=== PATIENT | male | born 1995 | race Caucasian/White ===

== ENCOUNTER → 2018-06-05 00:29 | Emergency (ER) | payer BC, OTHER ==
[~2018-06-05 00:29] MED LIST: Acetaminophen TAB* 325 MG PO ONE; Ketorolac INJ* 30 MG/ML 1 ML VIAL IV PUSH ONE; Metoclopramide IV* 5 MG/ML 2 ML VIAL IV SLOW PU ONE; NS 0.9% 1000 ML*IV.FLUID IV ONE; diPHENhydraMINE IV* 50 MG/ML 1 ml VIAL (BENADRYL) SLOW PUSH ONE
--- NOTE | 2018-06-05 01:59 | ED ---
Headache - HPI Summary HPI Summary: This patient is a 22 year old M presenting to [facility] with a chief complaint of a migraine at the roman catholic for 48 hours. The patient rates the pain 7/10 in severity. Patient reports fever of 103 F, vomiting, and photophobia. Patient denies neck pain. Pt states he has only had only one other migraine in the past. - History Of Current Complaint Chief Complaint: EDFever Stated Complaint: FEVER Time Seen by Provider: 06/05/18 01:23 Onset/Duration: Started days ago, Still Present Initially Headache Was: Moderate Currently Pain Is: Current Pain Scale(0-10)= - 7 Timing: Constant Character: Migraine Location of Headache: Temporal Associated Signs And Symptoms: Nausea, Vomiting, Fever - Allergies/Home Medications Allergies/Adverse Reactions: Allergies Allergy/AdvReac Type Severity Reaction Status Date / Time No Known Allergies Allergy Verified 06/05/18 00:38 PMH/Surg Hx/FS Hx/Imm Hx Endocrine/Hematology History: Denies: Hx Blood Transfusions, Hx Diabetes, Hx Systemic Lupus Erythematosus Cardiovascular History: Denies: Hx Congenital Heart Disease Respiratory History: Denies: Hx Bronchopulmonary Dysplasia, Hx Chronic Bronchitis, Hx Chronic Obstructive Pulmonary Disease (COPD), Hx Lung Cancer, Hx Pleural Effusion GI History: Denies: Hx Diverticulosis, Hx Gastrointestinal Bleed Opthamlomology History: Denies: Hx Macular Degeneration Neurological History: Reports: Hx Headaches, Hx Migraine Psychiatric History: Denies: Hx Eating Disorder Infectious Disease History: No Infectious Disease History: Denies: Traveled Outside the [place] in Last 30 Days - Family History Known Family History: Negative: Cardiac Disease, Hypertension, Diabetes, Renal Disease, Respiratory Disease, Seizure Disorder, Blood Disorder - Social History Alcohol Use: Occasionally Substance Use Type: Reports: None Smoking Status (MU): Never Smoked Tobacco Review of Systems Positive: Fever Positive: Photophobia Positive: Vomiting, Nausea Positive: Headache All Other Systems Reviewed And Are Negative: Yes Physical Exam - Summary Physical Exam Summary: VITAL SIGNS: Reviewed. GENERAL: Patient is a well-developed and nourished male who is lying comfortable in the stretcher. Patient is not in any acute respiratory distress. HEAD AND FACE: No signs of trauma. No ecchymosis, hematomas or skull depressions. No sinus tenderness. EYES: PERRLA, EOMI x 2, No injected conjunctiva, no nystagmus. EARS: Hearing grossly intact. Ear canals and tympanic membranes are within normal limits. MOUTH: Oropharynx within normal limits. NECK: Supple, trachea is midline, no adenopathy, no JVD, no carotid bruit, no c- spine tenderness, neck with full ROM. There are no meningeal signs CHEST: Symmetric, no tenderness at palpation LUNGS: Clear to auscultation bilaterally. No wheezing or crackles. CVS: Regular rate and rhythm, S1 and S2 present, no murmurs or gallops appreciated. ABDOMEN: Soft, non-tender. No signs of distention. No rebound no guarding, and no masses palpated. Bowel sounds are normal. EXTREMITIES: FROM in all major joints, no edema, no cyanosis or clubbing. NEURO: Alert and oriented x 3. No acute neurological deficits. Speech is normal and follows commands. SKIN: Dry and warm Triage Information Reviewed: Yes Vital Signs On Initial Exam: Initial Vitals Temp Pulse Resp BP Pulse Ox 102.4 F 113 18 116/68 97 06/05/18 00:34 06/05/18 00:34 06/05/18 00:34 06/05/18 00:34 06/05/18 00:34 Vital Signs Reviewed: Yes Diagnostics - Vital Signs Vital Signs Temp Pulse Resp BP Pulse Ox 06/05/18 00:34 102.4 F 113 18 116/68 97 - Laboratory Result Diagrams: 06/05/18 02:08 06/05/18 02:08 Lab Statement: Any lab studies that have been ordered have been reviewed, and results considered in the medical decision making process. Headache Course/Dx - Course Assessment/Plan: This patient is a 22 year old M presenting to [facility] with a chief complaint of a migraine at the roman catholic for 48 hours. The patient rates the pain 7/10 in severity. Patient reports fever of 103 F, vomiting, and photophobia. Patient denies neck pain. Pt states he has only had only one other migraine in the past. Blood work and UA obtained. Patient was negative for influenza, strep, and mono. Dx viral syndrome and headache. In the ED course the patient was given reglan, Benadryl, IV fluids, and Tylenol. Patient will be discharged and follow up from PCP. The patient is agreeable with this plan. - Diagnoses Provider Diagnoses: Viral syndrome, Headache Discharge - Sign-Out/Discharge Documenting (check all that apply): Patient Departure - Discharge Plan Condition: Stable Disposition: HOME Prescriptions: Ibuprofen TAB* [Motrin TAB* 800 MG] 800 mg PO Q6H PRN #30 tab PRN Reason: Fever/Pain Patient Education Materials: Viral Syndrome (ED), Acute Headache (ED) Referrals: [facility] [Outside] Additional Instructions: RETURN TO THE EMERGENCY DEPARTMENT FOR CHANGING OR WORSENING SYMPTOMS. FOLLOW UP WITH PCP IN 1-2 DAYS. - Attestation Statements Document Initiated by Scribe: Yes Documenting Scribe: Isaac Fair Provider For Whom Scribe is Documenting (Include Credential): Campbell Atkinson MD Scribe Attestation: Isaac Benites , scribed for Campbell Atkinson MD on 06/05/18 at [id number].
[2018-06-05 02:08] LABS: Urine Appearance Clear; Urine Blood Negative (Negative); Urine Color Yellow; Urine Ketones Negative (Negative); Urine Protein Negative (Negative); Urine Specific Gravity 1.018 (1.010-1.030); Urine Urobilinogen Negative (Negative)
[2018-06-05 02:23] LABS: ABS Basophils 0.1 10^3/ul (0-0.2); ABS Eosinophils 0.1 10^3/ul (0-0.6); ABS Lymphocytes 1.6 10^3/ul (1.0-4.8); ABS Monocytes 0.5 10^3/ul (0-0.8); ABS Neutrophils 7.2 10^3/ul (1.5-7.7); ABS Nucleated RBC 0 10^3/ul; Eosinophil % 0.8 % (0-6); Hematocrit 44 % (42-52); Hemoglobin 15.3 g/dl (14.0-18.0); Mean Corpuscular HGB Conc 35 g/dl (31-36); Mean Corpuscular Hemoglobin 31 pg (27-31); Mean Corpuscular Volume 89 fL (80-94); Mean Platelet Volume 9.4 um3 (7.4-10.4); Nucleated Red Blood Cells % 0.1; Platelet Count 149 10^3/ul (150-450); Red Cell Distribution Width 13 % (10.5-15); White Blood Count 9.5 10^3/ul (3.5-10.8)
[2018-06-05 02:24] LABS: INR 0.96 (0.77-1.02)
[2018-06-05 02:36] LABS: EGFR Non-African American 74.3 (>60)
[2018-06-05 04:00] VITALS: BP 132/65
== END | disposition home or self-care (01) ==
LOC: ED 00:29
DX: B34.9 Viral infection, unspecified (principal); R51 Headache; R11.2 Nausea with vomiting, unspecified; R50.9 Fever, unspecified; H53.149 Visual discomfort, unspecified
CPT/HCPCS: 36415; 80053; 81003; 82550; 83605; 85025; 85610; 86140; 86308; 86664; 86665; 87040; 87651; 96374; 96375; 99283; A9270-GY; J1200; J1885; J2765

== ENCOUNTER 2018-06-06 17:42 | Observation (INO) | payer BC ==
[2018-06-06] MEDS ORDERED: NS 0.9% 1000 ML* 1,000 ML IV ONE ×2 (18:04→18:48)
[2018-06-06] MEDS ORDERED: Ondansetron INJ* 2 MG/ML VIAL ONE (18:11)
[2018-06-06] MEDS: Ondansetron INJ* 2 MG/ML VIAL IV PRN ×2 (18:15→19:06)
[2018-06-06 18:39] LABS: ABS Basophils 0 10^3/ul (0-0.2); ABS Eosinophils 0 10^3/ul (0-0.6); ABS Monocytes 0.8 10^3/ul (0-0.8); ABS Neutrophils 10.5 10^3/ul (1.5-7.7); ABS Nucleated RBC 0 10^3/ul; Eosinophil % 0.4 % (0-6); Hematocrit 42 % (42-52); Hemoglobin 14.4 g/dl (14.0-18.0); Mean Corpuscular HGB Conc 34 g/dl (31-36); Mean Corpuscular Hemoglobin 30 pg (27-31); Mean Corpuscular Volume 89 fL (80-94); Mean Platelet Volume 9.1 um3 (7.4-10.4); Nucleated Red Blood Cells % 0; Platelet Count 130 10^3/ul (150-450); Red Blood Count 4.76 10^6/ul (4.00-5.40); Red Cell Distribution Width 13 % (10.5-15); White Blood Count 12.4 10^3/ul (3.5-10.8)
[2018-06-06] MEDS ORDERED: Metoclopramide IV* 5 MG/ML 2 ML VIAL ONE (18:45)
[2018-06-06] MEDS ORDERED: Metoclopramide IV* 5 MG/ML 2 ML VIAL IV ONE (18:47)
[2018-06-06 18:54] LABS: EGFR Non-African American 85.5 (>60)
--- NOTE | 2018-06-06 19:44 | ED ---
Nausea/Vomiting/Diarrhea HPI - HPI Summary HPI Summary: Patient complains of fever up to 102, persistent N/V, dizziness with room spinning, migraine headache x 4 days. No history of headaches, states RIVAS built gradually, has been persistent since onset. Seen here 06/04 for RIVAS, fever, N/V. D /c home with dx viral syndrome. Denies neck pain, vision chnage, sudden onset RIVAS, focal deficit, AMS, cough, sore throat, ear pain, SOB, abdominal pain, diarrhea, change in urine, penile pain or discharge, change in BM. Medical history is none. Abdominal/pelvic surgical history is none. Denies smoking, illegal drug use. Admits to occasional EtOH. Denies known contact exposure. - History of Current Complaint Chief Complaint: EDNauseaVomitDiarrh Stated Complaint: NAUSEA/VOMITING Time Seen by Provider: 06/06/18 18:01 Hx Obtained From: Patient Onset/Duration: Sudden Onset Severity Initially: Moderate Severity Currently: Moderate Pain Intensity: 5 Pain Scale Used: 0-10 Numeric Aggravating Factor(s): Nothing Alleviating Factor(s): Nothing Nausea/Vomiting Presence: Nauseated, Vomiting Vomiting Frequency: Every 1-2 hours Diarrhea Presence: No - Allergies/Home Medications Allergies/Adverse Reactions: Allergies Allergy/AdvReac Type Severity Reaction Status Date / Time No Known Allergies Allergy Verified 06/05/18 00:38 PMH/Surg Hx/FS Hx/Imm Hx Endocrine/Hematology History: Denies: Hx Blood Transfusions, Hx Diabetes, Hx Systemic Lupus Erythematosus Cardiovascular History: Denies: Hx Congenital Heart Disease Respiratory History: Denies: Hx Bronchopulmonary Dysplasia, Hx Chronic Bronchitis, Hx Chronic Obstructive Pulmonary Disease (COPD), Hx Lung Cancer, Hx Pleural Effusion GI History: Denies: Hx Diverticulosis, Hx Gastrointestinal Bleed Sensory History: Denies: Hx Macular Degeneration Opthamlomology History: Denies: Hx Macular Degeneration Neurological History: Reports: Hx Headaches, Hx Migraine Psychiatric History: Denies: Hx Eating Disorder Infectious Disease History: No Infectious Disease History: Denies: Traveled Outside the [place] in Last 30 Days - Family History Known Family History: Negative: Cardiac Disease, Hypertension, Diabetes, Renal Disease, Respiratory Disease, Seizure Disorder, Blood Disorder - Social History Alcohol Use: Occasionally Substance Use Type: Reports: None Smoking Status (MU): Never Smoked Tobacco Review of Systems Positive: Fever Eyes: Negative ENT: Negative Cardiovascular: Negative Respiratory: Negative Positive: Vomiting, Nausea Genitourinary: Negative Musculoskeletal: Negative Skin: Negative Positive: Headache Psychological: Normal All Other Systems Reviewed And Are Negative: Yes Physical Exam - Summary Physical Exam Summary: Negative Kernig's, negative Brudzinski. Full range of motion of neck without pain. Physical exam otherwise unremarkable. Triage Information Reviewed: Yes Vital Signs On Initial Exam: Initial Vitals Pulse Pulse Ox 64 100 06/06/18 17:50 06/06/18 17:50 Vital Signs Reviewed: Yes Appearance: Positive: Well-Appearing Skin: Positive: Warm Head/Face: Positive: Normal Head/Face Inspection Eyes: Positive: Normal Neck: Positive: Supple Respiratory/Lung Sounds: Positive: Clear to Auscultation Cardiovascular: Positive: Normal Abdomen Description: Positive: Nontender Musculoskeletal: Positive: Normal Neurological: Positive: Normal Psychiatric: Positive: Normal AVPU Assessment: Alert - [place] Coma Scale Best Eye Response: 4 - Spontaneous Best Motor Response: 6 - Obeys Commands Best Verbal Response: 5 - Oriented Coma Scale Total: 15 Diagnostics - Vital Signs Vital Signs Temp Pulse Resp BP Pulse Ox 06/06/18 19:00 64 100 06/06/18 18:50 66 120/75 100 06/06/18 18:20 62 119/68 100 06/06/18 18:00 61 100 06/06/18 17:58 97.2 F 61 22 129/94 100 06/06/18 17:54 66 129/94 100 06/06/18 17:50 64 100 - Laboratory Lab Results: Lab Results 06/06/18 06/06/18 06/06/18 Range/Units 18:31 18:31 18:31 WBC 12.4 H (3.5-10.8) 10^3/ul RBC 4.76 (4.00-5.40) 10^6/ul Hgb 14.4 (14.0-18.0) g/dl Hct 42 (42-52) % MCV 89 (80-94) fL MCH 30 (27-31) pg MCHC 34 (31-36) g/dl RDW 13 (10.5-15) % Plt Count 130 L (150-450) 10^3/ul MPV 9.1 (7.4-10.4) um3 Neut % (Auto) 84.9 H (38-83) % Lymph % (Auto) 8.0 L (25-47) % [place] % (Auto) 6.5 (0-7) % Eos % (Auto) 0.4 (0-6) % Baso % (Auto) 0.2 (0-2) % Absolute Neuts (auto) 10.5 H (1.5-7.7) 10^3/ul Absolute Lymphs (auto) 1.0 (1.0-4.8) 10^3/ul Absolute Monos (auto) 0.8 (0-0.8) 10^3/ul Absolute Eos (auto) 0 (0-0.6) 10^3/ul Absolute Basos (auto) 0 (0-0.2) 10^3/ul Absolute Nucleated RBC 0 10^3/ul Nucleated RBC % 0 Sodium 139 (135-145) mmol/L Potassium 3.8 (3.5-5.0) mmol/L Chloride 110 (101-111) mmol/L Carbon Dioxide 19 L (22-32) mmol/L Anion Gap 10 (2-11) mmol/L BUN 9 (6-24) mg/dL Creatinine 1.08 (0.67-1.17) mg/dL Est GFR ( Amer) 103.5 (>60) Est GFR (Non-Af Amer) 85.5 (>60) BUN/Creatinine Ratio 8.3 (8-20) Glucose 135 H (70-100) mg/dL Lactic Acid 2.0 (0.5-2.0) mmol/L Calcium 8.8 (8.6-10.3) mg/dL Total Bilirubin 0.80 (0.2-1.0) mg/dL AST 14 (13-39) U/L ALT 16 (7-52) U/L Alkaline Phosphatase 54 (34-104) U/L C-Reactive Protein 1.01 (<8.01) mg/L Total Protein 6.9 (6.4-8.9) g/dL Albumin 4.3 (3.2-5.2) g/dL Globulin 2.6 (2-4) g/dL Albumin/Globulin Ratio 1.7 (1-3) Lipase < 10 L (11.0-82.0) U/L Serum Alcohol < 10 (<10) mg/dL Result Diagrams: 06/06/18 18:31 06/06/18 18:31 Lab Statement: Any lab studies that have been ordered have been reviewed, and results considered in the medical decision making process. - CT brain CT Interpretation: No Acute Changes CT Interpretation Completed By: Radiologist Naus/Vom/Diarrhea Course/Dx - Course Course Of Treatment: Patient complains of fever up to 102, persistent N/V, dizziness with room spinning, migraine headache starting sunday. First symptom was headache which built gradually. Denies thunderclap headache. No history of headaches. Denies neck pain, cough, sore throat, ear pain, SOB, abdominal pain , diarrhea, change in urine, penile pain or discharge, change in BM. Medical history is none. Abdominal/pelvic surgical history is none. Denies smoking, illegal drug use. Admits to occasional EtOH. Denies known contact exposure. No nuchal rigidity. Abdominal exam unremarkable. CT head negative. WBC 12.4, labs otherwise unremarkable. Patient febrile, vital signs otherwise normal. Patient has been given 2 L of fluid. Did not respond to Zofran 4 mg IV, or Reglan 10 mg IV. Patient has improved somewhat with administration of Ativan 1 mg IV. Patient is bounce back from visit to ED 06/04. Patient has refused lumbar puncture after conversation with patient and family regarding risk of aseptic meningitis. Discussed patient with hospitalist who will see patient. - Differential Dx/Diagnosis Provider Diagnoses: Nausea vomiting. Headache. Fever. Viral syndrome Condition At Discharge: Stable Discharge - Sign-Out/Discharge Documenting (check all that apply): Patient Departure - Discharge Plan Condition: Stable Disposition: ADMITTED TO [facility] Referrals: Blaine Vergara MD [Primary Care Provider] - - Billing Disposition and Condition Condition: STABLE Disposition: Admitted to [facility]
[2018-06-06 19:59] LABS: Urine Appearance Clear; Urine Blood Negative (Negative); Urine Color Yellow; Urine Ketones 2+ (Negative); Urine Protein Negative (Negative); Urine Specific Gravity 1.015 (1.010-1.030); Urine Urobilinogen Negative (Negative)
[2018-06-06] MEDS ORDERED: Acetaminophen TAB* 325 MG PO ONE (20:02)
[2018-06-06] MEDS ORDERED: diPHENhydraMINE IV* 50 MG/ML 1 ml VIAL (BENADRYL) IV ONE (20:02)
[2018-06-06] MEDS ORDERED: LORazepam INJ* 2 MG/ML 1 ML VIAL IV ONE (20:08)
--- NOTE | 2018-06-06 20:39 | RAD ---
EXAM: CT Head Without Intravenous Contrast CLINICAL HISTORY: 22 years old, male; Pain; Headache; Headache not specified; Additional info: RIVAS, n/v TECHNIQUE: Axial computed tomography images of the head/brain without intravenous contrast. All CT scans at this facility use at least one of these dose optimization techniques: automated exposure control; mA and/or kV adjustment per patient size (includes targeted exams where dose is matched to clinical indication); or iterative reconstruction. COMPARISON: No relevant prior studies available. FINDINGS: Brain: No acute hemorrhage, edema, or extraaxial collection. Domingo white differentiation is maintained throughout the brain. Ventricles: Unremarkable. No ventriculomegaly. Bones/joints: No acute fracture or aggressive osseous lesions Soft tissues: Unremarkable. Sinuses: No mucosal thickening or air-fluid levels. The frontal sinuses are hypoplastic. Mastoid air cells: Unremarkable as visualized. No mastoid effusion. IMPRESSION: Normal head CT
[2018-06-06] MEDS ORDERED: PROCHLORPERAZINE INJ 5 MG/ML 2 ML VIAL IV PRN (23:06)
[2018-06-06] MEDS ORDERED: Ondansetron INJ* 2 MG/ML VIAL IV PRN (23:06)
[2018-06-06] MEDS ORDERED: Morphine INJ* 2 MG/ML 1 ML SYRINGE (TWO MG - NEW SYRINGE VERSION) IV PRN (23:23)
[2018-06-06] MEDS ORDERED: Acetaminophen TAB* 325 MG PO PRN (23:23)
[2018-06-06] MEDS: Ibuprofen TAB* 600 MG PO PRN (23:30)
[2018-06-07] MEDS: NS 0.9% 1000 ML* 1,000 ML IV SCH ×2 (00:39→08:18)
--- NOTE | 2018-06-07 01:26 | HP ---
CC: Dr. Vergara * HISTORY AND PHYSICAL: DATE OF ADMISSION: 06/06/18 PRIMARY CARE PROVIDER: Dr. Vergara. CHIEF COMPLAINT: Fever, headache, and vomiting. HISTORY OF PRESENT ILLNESS: Mr. Hairston is a 22-year-old male with no significant past medical history who states that on 06/03/18 around 5 p.m., he developed severe headache. He described this as being a migraine; however, he has never had a migraine headache before. He states that he took some ibuprofen and went to bed. Around midnight on 06/04/18, the patient developed fever and felt quite lousy. He had his housemate take him to the emergency room. At that point, he was treated with antiemetics, IV fluids, and pain medications, and felt better after 3 hours of treatment and was discharged home. The patient states that he has been lying low over the last couple of days. He has had significant vomiting, most notably on the day of admission. The family states that he was vomiting every 5 minutes. He had fevers at home. His headache persisted. He states that if he took enough Tylenol or ibuprofen , at that point the headache would subside. He has had severe photophobia and phonophobia. He has felt dizzy. He states that most times, when he changes position, he feels as if the room is spinning, however there have been times where just lying at rest he has felt a sudden onset of room spinning. He denies any neck pain. In the emergency room, on 06/05/18, the patient was evaluated for influenza, which was negative; group A rapid strep was negative, mono screen was negative. Due to the persistent symptoms, which today were worse than prior, he presented to the emergency room for reevaluation. PAST MEDICAL HISTORY: None. PAST SURGICAL HISTORY: [place] teeth extraction. ALLERGIES: No known drug allergies. MEDICATIONS: P.r.n. ibuprofen and Tylenol over the last couple of days. FAMILY HISTORY: Mom and dad are both living. Dad has a history of hypothyroidism. Mom is healthy. SOCIAL HISTORY: The patient does not smoke. He drinks socially on weekends. He does not use any recreational drugs. He is a robotics software engineer. He is not . He has no children. He indicates that his mom and dad would be his healthcare proxies. REVIEW OF SYSTEMS: A complete 11-system review of systems is obtained. Pertinent positives and negatives are as per HPI and in addition, the patient states that his appetite has been poor over the last few days and his stool has been loose. Otherwise, the review of systems is negative. PHYSICAL EXAMINATION GENERAL: The patient is a well-developed, young male, seen lying in the stretcher, in no acute distress. VITAL SIGNS: Blood pressure 118/49, pulse 108, respirations 27, O2 sat 97% on room air, temperature 101.9. HEENT: Pupils are equal and round. Extraocular muscles are intact. There is no evidence of nystagmus. Oropharynx is clear. Oral mucosa is moist. There is no submandibular, cervical, or supraclavicular adenopathy. Thyroid is not enlarged. No thyroid nodules are noted. PULMONARY: Lungs are clear to auscultation bilaterally. CARDIAC: Normal S1, S2. Heart rate is tachycardic, but regular. There is no lower extremity edema. ABDOMEN: Bowel sounds are present. Abdomen is soft, nontender, nondistended. MUSCULOSKELETAL: There is no cyanosis or clubbing of the digits. There is full active range of motion of all 4 extremities. NEURO: Cranial nerves II through XII appeared to be grossly intact. Sensation is intact to light touch throughout. Strength is 5/5 and symmetric to both upper and lower extremities bilaterally. PSYCH: The patient is alert. He is oriented x3. Affect appears appropriate. SKIN: Hot, it is dry. There are no rashes. DIAGNOSTIC STUDIES/LAB DATA: WBC 12.4, hemoglobin 14.4, hematocrit 42, platelets 130. Sodium 139, potassium 3.8, chloride 110, CO2 of 19. BUN 9, creatinine 1.08, glucose 135, lactic acid 2.0. Calcium 8.8. Bilirubin 0.8, AST 14, ALT 16, alk phos 54. CRP 1.01. Albumin 4.3. Lipase less than 10. Urinalysis reveals a specific gravity of 1.015, 2+ ketones, 1+ glucose. Urine drug screening is negative. Serum alcohol less than 10. Rapid influenza negative. CT brain, normal head CT. Chest x-ray to my interpretation appears clear. ASSESSMENT AND PLAN: Mr. Hairston is a 22-year-old male, who has no significant past medical history, who presents to the emergency room with 2 to 3 days of severe headache, nausea, vomiting, and fever. 1. Headache with associated fever, nausea, and vomiting. The differential for this includes meningitis. I do not suspect bacterial meningitis as the patient does not look severely ill and he has already been at home over the last 2 to 3 days with this condition and not decompensated further when he has today. Viral meningitis is a likely possibility, however in discussing a lumbar puncture with the patient he is refusing. He refused to both myself and the ER provider. I did tell him that for completeness sake, lumbar puncture is recommended. He states that he will think about it overnight and if he decides to pursue the lumbar puncture, anesthesia can be contacted in the morning to have this done. The patient's headache, nausea, vomiting, and fever could also be secondary to a viral illness. He may just be very symptomatic from run of the mill virus. The patient is septic based on sepsis II criteria with fever, tachycardia, and tachypnea, however as there is no clear bacterial source at this time I am not starting antibiotics as antibiotics are inappropriate for use in a viral infection. The patient is also likely volume deplete. His urine specific gravity is high. His creatinine on the all terrain vehicle racer of was slightly higher than where it is today, though he again likely is still dry at this point due to all the vomiting and lack of oral intake. Dehydration could also be contributing to some of his headache and vomiting. The patient will be hydrated with normal saline at 125 mL per hour. The patient as above will be hydrated. He will have antiemetics that can be alternated to control his nausea and he will have pain medication available. He will be observed overnight and if feeling better tomorrow, can likely be discharged home without further intervention or evaluation. 2. DVT prophylaxis. According to the Adult Thrombosis Prophylaxis Risk Factor Assessment Guide, the patient has a total risk factor score of 1, making him low risk. Ambulation will be utilized as DVT prophylaxis. 3. Code status is full. TIME SPENT: Fifty minutes was spent admitting this patient. [id number]/[facility] #: [id number] ANDRE
--- NOTE | 2018-06-07 07:31 | RAD ---
INDICATION: Shortness of breath. COMPARISON: Comparison is made with a prior chest x-ray study from May 16, 2004. TECHNIQUE: A portable view of the chest was obtained. The very lateral aspect of the left lung is cut off on the film. FINDINGS: Cardiac and mediastinal contours appear to be within normal limits. The lungs are clear. No pleural effusion or pneumothorax is seen. IMPRESSION: SLIGHTLY LIMITED STUDY, NO EVIDENCE FOR ACUTE FINDING. R1
[2018-06-07 08:20] VITALS: BP 134/51
[2018-06-07] MEDS: Ibuprofen TAB* 600 MG PO PRN (09:28)
[2018-06-07] MEDS ORDERED: oxyCODONE TAB* 5 MG TAB PO PRN (11:27)
[2018-06-07] MEDS ORDERED: oxyCODONE/Acetamin 5/325 MG* TAB ONE (11:30)
[2018-06-07] MEDS ORDERED: oxyCODONE TAB* 5 MG TAB ONE (11:34)
--- NOTE | 2018-06-07 11:34 | PN ---
"Progress Note - Progress Note Date of Service: 06/07/18 Note: Search Terms: yue grimaldo, 1995 Search Date: 06/07/2018 11:33:12 AM The Drug Utilization Report below displays all of the controlled substance prescriptions, if any, that your patient has filled in the last twelve months. The information displayed on this report is compiled from pharmacy submissions to the Department, and accurately reflects the information as submitted by the pharmacies. This report was requested by: Fidel Hutson | Reference #: [id number] There are no results for the search terms that you entered. Rx oxycodone 5 mg q 4 hr PRN # 12."
--- NOTE | 2018-06-08 07:52 | DS ---
DISCHARGE SUMMARY: DATE OF ADMISSION: DATE OF DISCHARGE: 06/07/18 HOSPITAL COURSE: This is a 22-year-old man presented with headache, fever, vomiting, and loose stool s. This is a second visit to the emergency room. He said he had a migraine headache when he was 10 years old. His father has optical migraines with visual disturbances only. The patient had a temper ature here of as high as 102.9. On the morning of discharge, he was afebrile. He seemed to have imp roved significantly. Both his parents and his girlfriend were at the bedside and they and the patien t all agreed, he seemed to be improving. He had no vomiting since yesterday evening. He had some fo od and drink this morning and he was not feeling nauseous. His headache is improved. He had only re ceived ibuprofen for his headache, which seemed to help. I note that he had been offered lumbar punc ture on the day of admission, but refused. At this point, I do not think there is any point in pursu ing this as the diagnosis of viral illness seems fairly secure and he is improving. He did have a mi ld leukocytosis of 12.4. CO2 is decreased at 19, probably related to the vomiting and diarrhea. Glu cose is 135 and 109. I note he did not receive any antibiotics throughout the entire course of his i llness. FINAL DIAGNOSES: 1. Viral illness. 2. Possible migraine. DISCHARGE MEDICATIONS: Ibuprofen 600 mg every 6 hours p.r.n. DISCHARGE CONDITION: Improved. DISCHARGE DISPOSITION: Home. [id number]/[facility] #: [id number]
== END 2018-06-07 12:40 | disposition home or self-care (01) ==
LOC: ED 17:42 → MED 23:06
PROVIDERS: ADMIT Hospitalist; ATTEND Internal Medicine
DX: B34.9 Viral infection, unspecified (principal); R51 Headache; R11.2 Nausea with vomiting, unspecified; R50.9 Fever, unspecified; I48.91 Unspecified atrial fibrillation
CPT/HCPCS: 36415; 70450; 71045; 80053; 80307; 80320; 81003; 83605; 83690; 85025; 86140; 87040; 93005; 96361; 96374; 96375; 96376; 99284; A9270-GY; G0378; G0480; J1200; J2060; J2405; J2765